=== PATIENT | female | born 1940 | race Caucasian/White ===

== ENCOUNTER 2018-09-28 08:06 | Observation (INO) ==
[2018-09-28] MEDS ORDERED: Heparin - SQ 10,000 UNITS/ML Vial SQ SCH (09:00)
[2018-09-28] MEDS ORDERED: ceFAZolin 1 GM Premix Inj 1 GM/50 ML PIGGYBACK IV.SIG SCH (09:00)
[2018-09-28] MEDS ORDERED: Sodium Chloride 0.9% 2 ML Flush PRN IV.FLUSH (09:06)
[2018-09-28] MEDS ORDERED: Sodium Chlor 0.9% Inj 500 ML IV.CONT ONE (09:15)
[2018-09-28] MEDS ORDERED: Chlorhexidine Gluconate 2% 1 Pack (2 Cloths) TOPICAL ONE (09:15)
[2018-09-28] MEDS ORDERED: Metoprolol Tartrate 25 MG Tablet PO ONE (09:15)
[2018-09-28] MEDS ORDERED: Sugammadex Inj 200 MG/2 ML Vial IV.PUSH ONE (12:42)
[2018-09-28] MEDS ORDERED: Famotidine PF Inj 20 MG/2 ML Vial ONE (12:42)
[2018-09-28] MEDS ORDERED: KCL 20 mEq/D5W/NaCl 0.45% Inj 1,000 ML ONE (18:05)
[2018-09-28] MEDS ORDERED: fentaNYL Citrate Inj 100 MCG/2 ML Ampul ONE (18:09)
[2018-09-28] MEDS: KCL 20 mEq/D5W/NaCl 0.45% Inj 1,000 ML IV.CONT SCH (18:19)
[2018-09-28] MEDS: Ketorolac Inj 30 MG/ML (IVP) Vial IV.PUSH SCH (18:20)
[2018-09-28] MEDS: ceFAZolin 1 GM Premix Inj 1 GM/50 ML PIGGYBACK IV.SIG SCH (20:22)
[2018-09-28] MEDS ORDERED: Sodium Chloride 0.9% 2 ML Flush BID IV.FLUSH SCH (21:00)
[2018-09-28] MEDS ORDERED: Latanoprost 0.005% Opth Drops 2.5 ML Bottle EACH EYE SCH (21:00)
[2018-09-29] MEDS: Ketorolac Inj 30 MG/ML (IVP) Vial IV.PUSH SCH ×3 (00:19→13:30)
[2018-09-29] MEDS: KCL 20 mEq/D5W/NaCl 0.45% Inj 1,000 ML IV.CONT SCH ×2 (04:55→16:14)
[2018-09-29 05:03] VITALS: O2SAT 95
[2018-09-29] MEDS: ceFAZolin 1 GM Premix Inj 1 GM/50 ML PIGGYBACK IV.SIG SCH ×2 (05:08→13:30)
[2018-09-29 06:13] LABS: Baso % (Auto) 0.1 % (0.0-2.0); Hemoglobin 13.3 gm/dL (11.6-15.3); Lymph # (Auto) 1.1 th/mm3 (1.0-4.8); Lymph % (Auto) 11.2 % (9.0-44.0); Mean Corpuscular HGB Conc 34.9 % (32.0-36.0); Mean Corpuscular Hemoglobin 33.5 pg (27.0-34.0); Mean Corpuscular Volume 96.1 fL (80.0-100.0); Mean Platelet Volume 9.2 fL (7.0-11.0); Mono # (Auto) 0.7 th/mm3 (0.0-0.9); Neut # (Auto) 7.6 th/mm3 (1.8-7.7); Neut % (Auto) 80.7 % (16.0-70.0); Platelet Count 172 th/mm3 (150-450); Red Blood Count 3.96 mil/mm3 (4.00-5.30); Red Cell Distribution Width 12.3 % (11.6-17.2); White Blood Count 9.4 th/mm3 (4.0-11.0)
[2018-09-29 06:37] LABS: Calcium 7.8 mg/dL (8.5-10.1); Potassium 4.1 meq/L (3.5-5.1)
[2018-09-29] MEDS ORDERED: Lisinopril 10 MG Tablet PO SCH (09:00)
--- NOTE | 2018-09-29 10:45 | MD ---
cc: Leta Segundo MD, Julie MD DATE OF DISCHARGE: PROCEDURE: 09/28/2018: Robotic-assisted laparoscopic hysterectomy, bilateral salpingo-oophorectomy, bilateral pelvic lymph node dissection, lysis of adhesions. HOSPITAL COURSE: She did well in the early postop period, she was hemodynamically stable. She tolerated oral intake well. Ziegler catheter will be removed pending voiding; ins and out's are 3870/1350. Labs this morning show H and H of 13.3 and 38. BUN and creatinine 12.0 and 0.96. PHYSICAL EXAMINATION: VITAL SIGNS: Afebrile, pulse 65-83, respirations 15-19, blood pressure 103-148/57-87, pulse 72-107, O2 saturations 95% while awake. GENERAL: Alert and oriented x3. LUNGS: Clear, except for some basilar rales. CARDIOVASCULAR: Regular rate and rhythm. ABDOMEN: Soft. Incisions clean and dry. GYNECOLOGIC: No bleeding. EXTREMITIES: Nontender. ASSESSMENT: Postoperative day number 1; doing well the early postoperative period. The findings at the time of surgery, the steps taken and the preliminary pathology discussed. Activities and restrictions are again reviewed. Questions were asked and answered. She expressed good understanding. PLAN: Anticipate she will be ready for discharge to home today. She is to contact our office to schedule a followup in 2 weeks. She is to resume prior medication. She will have a prescription for Percocet and she is to contact our office should she have any questions or problems between now and the time of scheduled followup. MD JORGE Christopher/criselda , 08:02 AM , 08:09 AM
[2018-09-29 12:25] VITALS: BP 120/80; PULSE 118; RESP 17; TEMP 98
--- NOTE | 2018-10-12 10:29 | MP ---
cc: Leta Segundo MD, Mina MD DaSilva,Margarita Mora MD DATE OF OPERATION: 09/28/2018 DATE OF PROCEDURE: 09/28/2018. PREOPERATIVE DIAGNOSES: Uterine mass, postmenopausal bleeding, suspicion for malignancy. POSTOPERATIVE DIAGNOSES: Uterine mass, postmenopausal bleeding, suspicion for malignancy. PROCEDURE: Robotic-assisted laparoscopic hysterectomy and bilateral salpingo-oophorectomy, bilateral pelvic lymphadenectomy. 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 ANESTHESIA: General endotracheal anesthesia. ESTIMATED BLOOD LOSS: 250 mL IV FLUIDS: 2000 mL URINE OUTPUT: 300 mL. HISTORY: This is a 78-year-old female with postmenopausal bleeding; a mass in the upper uterus was detected, biopsy nondiagnostic, but there was clinical suspicion of malignancy. She was counseled regarding options. She was in favor definitive hysterectomy; understands that there was potential need for additional staging steps. She was seen again in the preoperative holding area where the findings and plan of care are again reviewed. Questions were asked and answered. She expressed good understanding and would like to move forward with surgical management. FINDINGS: Uterine cavity sounded to approximately between 6 cm and 7 cm. The surface of the uterus, grossly appeared normal. The tubes and ovaries grossly appeared normal. In the peritoneal cavity, there were no peritoneal implants. The liver diaphragm edges were smooth. The omentum, large and small bowel and adjacent mesentery were normal. There were a few diverticula noted in the descending colon. There were no appreciably enlarged pelvic or paraaortic lymph nodes. 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 DESCRIPTION OF PROCEDURE: She was taken to the operating room and placed in dorsal lithotomy position, after general endotracheal anesthesia was administered. A timeout was undertaken. She was identified by site recognition and hospital ID bracelet and the proposed procedure was reviewed and confirmed. She was carefully positioned in padded Kenrick stirrups. Her arms were padded and secured to the sides. She was further secured to the operating table with egg crate padding and tape in a cross-chest over the shoulder fashion. All sites were noted to be properly aligned with no malalignment or pressure points. She was prepped and draped in usual sterile fashion and placed in lithotomy position. The cervix was grasped. Uterine cavity sounded; cervix dilated and a standard V-Care manipulator was inserted and secured in the usual fashion. Ziegler catheter was placed in the bladder. She was returned to low lithotomy position and change of sterile gloves was undertaken as we completed draping in anticipation of laparoscopy. After confirming there was an orogastric tube in the stomach on suction and with manual elevation of the abdominal wall, a 5 mm cannula was introduced into the left upper quadrant. Carbon dioxide gas was insufflated and an atraumatic entry was confirmed. An 8 mm cannula was placed in the right upper quadrant and left lateral quadrant and the original 5 mm exchanged for an 8 mm cannula. She was placed in Trendelenburg position. Peritoneal washings were obtained for cytology. The anatomy was surveyed with findings as described above. The small bowel was folded back on its mesenteric root. Ray-Kamaljit sponges were placed around the root of the small bowel mesentery. The robotic system was brought into the operative field, attached in the usual fashion. Monopolar scissors, fenestrated bipolar forceps and ProGrasp manipulators were placed in arms #1, 2, and 3 respectively and I took my place at the surgeon's console. The right round ligament was isolated, cauterized, and transected. The anterior and posterior leafs of the broad ligament were opened and the right ureter was identified. The right infundibulopelvic ligament was isolated. The intervening peritoneum was opened. The infundibulopelvic ligament was isolated to the level of the pelvic brim where it was cauterized and transected. Posterior peritoneum opened along the right side of the uterus and cervix and the right vesicouterine peritoneum dissected off the lower uterine segment and cervix as the right uterine vessels were skeletonized, then cauterized and transected. The cardinal, paracervical and uterosacral ligaments were isolated, cauterized, and transected in similar fashion, thereby freeing the attachments along the right side of the uterus and cervix. Attention was directed toward the left side and the left round ligament was isolated, cauterized, and transected. The anterior and posterior leaves of the broad ligament were opened. The left ureter was identified. The left infundibulopelvic ligament was isolated. The intervening peritoneum was opened. Infundibulopelvic ligament was isolated to the level of the pelvic brim where it was cauterized and transected. Posterior peritoneum opened along the left side of the uterus and cervix and the left vesicouterine peritoneum was dissected off the lower uterine segment and cervix. The left uterine vessels were skeletonized, cauterized, and transected. Next, the cardinal, paracervical and uterosacral ligaments were isolated, cauterized, and transected in a stepwise fashion, thereby freeing the attachments along the left side of the uterus and cervix. Circumferential colpotomy was performed the cervix from the upper vagina. The specimen was delivered transvaginally which included uterus, cervix, tubes and ovaries, and the pneumo-occluder balloon was placed in the vagina to maintain pneumoperitoneum. Instruments 1 and 3 were exchanged for needle drivers as a 0-Vicryl suture was introduced. The vaginal cuff was closed starting at the left corner where a full thickness closure including the posterior peritoneum and edge of the uterosacral ligament were included and tied via instrument tie. The closure was held on countertraction as a full-thickness running continuous closure was carried across the vaginal apex to the contralateral corner, were it was similarly fixed, secured and tied. The needle was cut and removed. 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 Accordingly, the paravesical and obturator spaces were developed on the right pelvis and in the left pelvis and visual and manual inspection of the pelvic lymphatic basins, as well as the periaortic and pericaval lymphatic basin revealed no obviously enlarged periaortic or pericaval lymph nodes, but there were several multifocal enlarged prominent lymph nodes in the pelvis bilaterally. In keeping with our objectives and preoperative discussion, any abnormal appearing lymph nodes would be removed. We will try to spare some normal appearing lymphatics in an effort to help reduce morbidity but to clarify the presence or absence of metastatic disease. Starting in the right pelvis, after the spaces had been opened with blunt dissection and cautery, several enlarged lymph nodes were noted; one at the bifurcation of the iliac vessels, two within the obturator space and one along the distal external iliac artery. Each of these were isolated and removed in the order described while using bipolar cautery and sharp dissection to separate them from surrounding structures. Each of the lymph nodes were dissected free and placed on Ray-Kamaljit sponges that were in the right pericolic gutter for later retrieval. Inspection confirmed there were no remaining enlarged lymph nodes throughout the right side of the pelvis, The neurovascular structures were intact with good peristalsis of the ureter. Periaortic and pericaval area were again inspected and palpated. No abnormal nodes were seen, so attention was redirected toward the left pelvis. This patient had been opened with blunt and sharp dissection. Lymphatics were inspected. There was a prominent lymph node in the distal edge of the external iliac artery, one overlying the medial aspect of the external iliac vein and another prominent lymph node overlying the obturator nerve and the obturator space. Each of these lymph nodes were isolated with bipolar cautery and sharp dissection in the order as described with full inspection at the end of dissection, revealing no remaining abnormal-appearing lymph nodes. The neurovascular structures were intact. Good peristalsis of ureters bilaterally. The pelvis was thoroughly irrigated. Small bleeders rendered hemostatic with bipolar cautery. The integrity of the bladder was checked by filling the bladder with saline dyed with methylene blue. The bladder distended nicely under pressure. There were no weak spots in the bladder, no extravasation of dye. There was a good margin between the edge of the bladder and the vaginal cuff suture line and the bladder was drained. Hemostatic Geneva powder was placed across the vaginal cuff and in the lateral pelvic sidewall dissection. The robotic instruments were removed. The robotic system was disengaged from the operative field. I reentered the bedside under sterile conditions. The right and left pelvic lymph nodes had been removed and collectively placed in the right pericolic gutter on a Ray-Kamaljit sponge. A 12 cm EndoCatch bag was introduced and each of the lymph nodes that had been removed were placed in the bag. The bag was closed. It was brought up and out through the 12 mm cannula. Next, each of the 3 Ray-Kamaljit sponges that were placed in the peritoneal cavity were isolated and removed. Each were removed individually and noted to be intact. There were no remaining foreign objects in the peritoneal cavity. Preliminary counts were correct and attention was directed toward closing. The 12 mm fascial defect was closed with interrupted 0-Vicryl suture using a needle fascial closure apparatus, the sutures were tied securely, which rendered the fascia completely airtight and hemostatic. The remaining cannulas were withdrawn. Carbon dioxide gas was removed from the peritoneal cavity; 3-0 Vicryl subcutaneous, 3-0 Vicryl subcuticular and Steri-Strips were used to close these incisions. She was returned to dorsal lithotomy position. Pelvic exam confirmed the vaginal cuff was well-supported and hemostatic. There were no remaining foreign objects in the vagina. There were no vaginal lacerations; superficial irritation to the mucosa was rendered hemostatic with the remaining Geneva hemostatic powder. Final counts were correct. She was returned to dorsal supine position and was pending reversal of anesthesia, when I left the operating room to precede her to the postanesthesia care unit. MD JORGE Christopher/criselda , 08:26 AM , 08:45 AM
== END 2018-09-29 16:04 | disposition home or self-care (01) ==
LOC: HOR 08:06 → HSDI 08:06 → N07 19:20
PROVIDERS: ADMIT Obstetrics & Gynecology Gynecologic Oncology; ATTEND Obstetrics & Gynecology Gynecologic Oncology